=== PATIENT | male | born 1970 | race Caucasian/White ===

== ENCOUNTER → 2023-01-30 14:56 | Outpatient (BNVA) | payer OTHER, SELFPAY | PROVIDERS: PCP Registered Nurse; Visit Provider Nurse Practitioner Family ==

== ENCOUNTER 2023-09-11 09:31 | Day surgery (SDC) | payer OTHER, SELFPAY ==
[2023-09-09 14:20] VITALS: BMI 29.7
--- NOTE | 2023-09-10 13:30 | P.CONAN_ITS ---
Documented by User: Symone Donahue NP 09/10/23 13:31 HPI - Anesthesia Eval Consult details Narrative: 53yo M for Colonoscopy No PMHx provided by GI Anesthesia Pre-Procedure Meds Is the patient on any of the following meds?: Semaglutide (Ozempic) (PO Daily) [facility] Past Medical History Medical History Hypercholesteremia HTN (hypertension) Diabetes Family History Family History Father Diabetes 1.5, managed as type 2 High cholesterol Social History Social History Household Members: Spouse Alcohol intake: never Patient Tobacco Use Status: Never used Tobacco Advance Directives: No Advance Directives Information Provided: Yes Meds Allergies Allergy/AdvReac Type Severity Reaction Status Date / Time No Known Allergies Allergy Verified 01/30/23 15:13 Home Medications Medication Instructions Recorded Confirmed Last Taken Type atorvastatin 10 mg tablet 10 mg PO DAILY 01/30/23 09/11/23 Unknown History lisinopril 10 mg tablet 10 mg PO DAILY 01/30/23 09/11/23 Unknown History omega3-calcium 1,000 mg-D3 800 1 pkg PO 01/30/23 Unknown History unit-folic ac 2.5 mg-mv oral combo pack semaglutide 14 mg tablet (Rybelsus) 14 mg PO DAILY 01/30/23 09/11/23 Unknown History Exam Height,Weight and Vital Signs: Height 5 ft 10 in Weight 93.894 kg Assessment and Plan Assessment Anesthesia Assessment: Chart Reviewed Documented by User: Ena Sorensen MD 09/11/23 10:25 HPI - Anesthesia Eval Anesthesia Pre-Procedure Meds If Yes to any meds - educate patient: Pt education - increased risk of aspiration and Pt education - possibility of cancelled proc at provider's discretion [facility] Past Medical History Medical History Hypercholesteremia HTN (hypertension) Diabetes Family History Family History Father Diabetes 1.5, managed as type 2 High cholesterol Surgical History History of Problems with Anesthesia: No Social History Social History Household Members: Spouse Alcohol intake: never Patient Tobacco Use Status: Never used Tobacco Advance Directives: No Advance Directives Information Provided: Yes Meds Allergies Allergy/AdvReac Type Severity Reaction Status Date / Time No Known Allergies Allergy Verified 01/30/23 15:13 Home Medications Medication Instructions Recorded Confirmed Last Taken Type atorvastatin 10 mg tablet 10 mg PO DAILY 01/30/23 09/11/23 Unknown History lisinopril 10 mg tablet 10 mg PO DAILY 01/30/23 09/11/23 Unknown History omega3-calcium 1,000 mg-D3 800 1 pkg PO 01/30/23 Unknown History unit-folic ac 2.5 mg-mv oral combo pack semaglutide 14 mg tablet (Rybelsus) 14 mg PO DAILY 01/30/23 09/11/23 Unknown History Exam Airway Mallampati Class: II TM Dist: >3cm Neck ROM: Full Loose/Missing/Broken Teeth: No Heart: RRR Lungs: CTA Assessment and Plan Assessment Anesthesia Assessment: Anesthesia Plan Discussed Final Anesthetic Review History of Problems with Anesthesia: No NPO: Yes ASA Class: II Final Preanesthetic Review: Meds/Allgs Chart Reviewed, Consent Obtained/Reviewed and Anes Risks/Benef Reviewed Patient Risk: Low Procedure Risk: Low Anesthetic Plan Anesthetic Plan: MAC: Disposition: Standard PACU
[2023-09-11 09:54] VITALS: BMI 31.3
[2023-09-11 10:23] VITALS: BP 147/89; PULSE 100; RESP 18; TEMP 36.8; O2SAT 98
[2023-09-11 10:29] LABS: Glucose, Whole Blood 186 mg/dL (60-115)
[2023-09-11] MEDS: Lactated Ringers 1,000 ML 100 ML IVCONT (10:37)
--- NOTE | 2023-09-11 10:45 | MHC.SHP ---
Pre-Procedural Eval Section A Date of Service: 09/11/23 The patient is an INPATIENT: No The History & Physical has been completed within 30 days and I have reviewed it.: No Section B Chief Complaint: Colon cancer screening, FH of colon polyps Relevant Family History (Specify if Yes): Yes Relevant Social History: None Present Medications: see Short Stay Collaborative assessment Medical History: Significant History (Hypertension, diabetes mellitus) History of Previous Operations: No relevant previous surgery Allergies: Allergies Allergy/AdvReac Type Severity Reaction Status Date / Time No Known Allergies Allergy Verified 01/30/23 15:13 Review of Systems Sugical H&P ROS: Negative: Constitution, Cardiovascular, Respiratory and Gastrointestinal Exam Surgical H&P Exam: Normal: Heart, Normal: Lungs, Normal: Extremities and Normal: Abdomen Plan Diagnosis/Plan: Unchanged I have reviewed the history and physical and performed a pertinent physical examination on my patient. No changes have occurred unless specified. Time Spent With Patient Time: Total time managing care of this patient today ____ minutes.
--- NOTE | 2023-09-11 11:27 | P.OP_ITS ---
Operative Note Operative Note Date of Service: 09/11/23 Narrative: COLONOSCOPY TILL CECUM WITH SNARE POLYPECTOMY Pre-op diagnosis: Colon cancer screening, family history of colon polyps (Mom in her 50's) Post-op diagnosis:? Colon polyps, diverticulosis, hemorrhoids Endoscopist:? Siobhan Swain MD Anesthesia:?MAC Consent: Indications for the procedure and potential complications of bleeding, perforation, reaction to medications and missed diagnosis were discussed with the patient and informed consent was obtained. Instrument: Olympus CF H 190 L variable stiffness adult colonoscope Monitoring: Vital signs and clinical assessment, intermittent blood pressure monitoring, continuous EKG monitoring, Pulse oximetry and Carbon Dioxide monitoring were done throughout the procedure. Please see anesthesia flowsheet. Colon withdrawl time was 22 minutes. Procedure: The patient was placed in the left lateral decubitis position and pre-procedure medications were administered. After a digital rectal examination of the ano-rectum, the video colonoscope was inserted into the rectum and advanced through the colon to the cecum. The colonoscope was slowly withdrawn in a retrograde panoramic fashion and the colon mucosa was carefully examined including a retroflexed view of the rectum. Findings and interventions are described below. Procedure Difficulty: Without difficulty Findings: Terminal Ileum: Not evaluated Cecum: Normal Ascending Colon: Normal Transverse Colon: Normal Descending Colon: Normal Sigmoid Colon: Moderate diverticulosis Rectum: Three 4-7 mm sessile polyps - removed with a cold snare Ano-rectum: Moderate internal hemorrhoids Colon preparation: Good [place] Bowel Preparation Scale Right colon; 3 Transverse colon: 3 Left colon; 3 (0 = Unprepared colon segment with mucosa not seen due to solid stool that cannot be cleared. 1 = Portion of mucosa of the colon segment seen, but other areas of the colon segment not well seen due to staining, residual stool and/or opaque liquid. 2 = Minor amount of residual staining, small fragments of stool and/or opaque liquid, but mucosa of colon segment seen well. 3 = Entire mucosa of colon segment seen well with no residual staining, small fragments of stool or opaque liquid) Impression and Post Procedure Diagnosis: Colonoscopy Findings: Three small polyps removed Moderate diverticulosis seen in the sigmoid colon Moderate hemorrhoids on retroflexed exam. Plan: Await pathology results Patient has an appointment on 09/25/23 in the [facility] with Roseanne Huang FNP- [facility] . Repeat Colonoscopy interval based on path results - in 3-5 years if polyps are adenomatous and due to a family hx of colon polyps. Above findings were reviewed with the patient and colon polyps and diverticulosis handouts were given in the discharge area
[2023-09-11 11:30] VITALS: BP 107/73; PULSE 83; RESP 20; TEMP 36.4; O2SAT 98
[2023-09-11 11:46] VITALS: BP 121/76; PULSE 89; RESP 17; TEMP 36.4; O2SAT 96
== END 2023-09-11 12:09 | disposition home or self-care (01) ==
PROVIDERS: PCP Registered Nurse; Visit Provider Internal Medicine Gastroenterology
PROC: 0DJD8ZZ Inspection of Lower Intestinal Tract, Via Natural or Artificial Opening Endoscopic (ICD-10-PCS; CPT 45378; principal; 2023-09-11 11:10)
DX: Z12.11 Encounter for screening for malignant neoplasm of colon (principal); K63.5 Polyp of colon; K57.30 Diverticulosis of large intestine without perforation or abscess without bleeding; K64.8 Other hemorrhoids; E11.9 Type 2 diabetes mellitus without complications; I10 Essential (primary) hypertension; E78.00 Pure hypercholesterolemia, unspecified; Z83.719 Family history of colon polyps, unspecified
CPT/HCPCS: 45385; 82947; 88305; J2704

== ENCOUNTER → 2023-09-11 09:31 | Outpatient (BNV) | payer OTHER, SELFPAY | PROVIDERS: PCP Registered Nurse; Visit Provider Internal Medicine Gastroenterology | DX: Z12.11 Encounter for screening for malignant neoplasm of colon (principal); Z83.71 Family history of colonic polyps; K63.5 Polyp of colon; K57.30 Diverticulosis of large intestine without perforation or abscess without bleeding | CPT/HCPCS: 45385 ==